=== PATIENT | female | born 1930 | race Caucasian/White ===

== ENCOUNTER 2017-07-27 08:35 | Emergency (ER) | payer MEDICARE, BC ==
[2017-07-27 09:00] VITALS: BP 180/100
--- NOTE | 2017-07-27 09:08 | EDM.PDOC ---
ED HPI GENERAL MEDICAL PROBLEM - General Chief Complaint: Gastrointestinal Problem Stated Complaint: NAUSEA Time Seen by Provider: 07/27/17 08:55 Source of Information: Reports: Patient History Limitations: Reports: No Limitations - History of Present Illness INITIAL COMMENTS - FREE TEXT/NARRATIVE: Connie is an 86 year old female who presents to the ED with c/o low-mid back pain and nausea. She reports she has not felt well for about 4 days now. She reports she does have chronic back pain. She reports the pain has worsened the last 4 days after she was attempting to move some heavy flower pots. She reports she did not lift them, but rather was trying to pull them to a different location. She reports she normally sees the chiropractor, but this has not been helping. She also reports she has felt nauseated the past 4 days as well. She reports she has not had a bowel movement the last 3 days and has been belching more as well. She reports her appetite has been decreased. She has been trying tums for the nausea, but this has not been helping. She has not been able to eat much. She reports her back pain is worse when initially getting up to ambulate. She reports the pain improves once she is up for a little while. She denies any pain while she is sitting. Denies any radiation of the pain down her legs. Denies any loss of bowel or bladder control. Onset Date: 07/25/17 Duration: Getting Worse Location: Reports: Abdomen, Back Worsens with: Reports: Movement Associated Symptoms: Reports: Fever/Chills (chills, no fever), Loss of Appetite , Nausea/Vomiting (nausea, no vomiting), Shortness of Breath, Weakness. Denies : Confusion, Chest Pain, Cough, cough w sputum, Diaphoresis, Headaches, Malaise , Rash, Seizure, Syncope - Related Data Allergies Allergy/AdvReac Type Severity Reaction Status Date / Time levofloxacin [From Levaquin] Allergy Shaking Verified 07/27/17 08:44 Penicillins Allergy Rash Verified 07/27/17 08:44 sulfamethoxazole Allergy Shaking Verified 07/27/17 08:44 [From Bactrim] trimethoprim [From Bactrim] Allergy Shaking Verified 07/27/17 08:44 Home Meds: Home Meds Omeprazole 20 mg PO DAILY 09/28/13 [History] Simvastatin 10 mg PO BEDTIME 09/28/13 [History] Atenolol [Tenormin] 25 mg PO BEDTIME 02/23/14 [History] Lisinopril/Hydrochlorothiazide [Lisinopril-Hctz 20-25 mg Tab] 1 each PO BID 10/30 [History] Aspirin [Halfprin] 81 mg PO BEDTIME 11/21/14 [History] Cyanocobalamin (Vitamin B-12) [Vitamin B-12] 1,000 mcg PO Q7D 11/21/14 [History] Doxylamine Succinate [Unisom Sleep Aid] 25 mg PO BEDTIME PRN 11/21/14 [History] Magnesium [Mag-Tab SR] 1 tab PO DAILY 11/21/14 [History] Cholecalciferol (Vitamin D3) [Vitamin D3] 1,000 unit PO DAILY 10/08/15 [History] Cranberry 400 mg PO DAILY 10/08/15 [History] Pregabalin [Lyrica] 50 mg PO DAILY 10/08/15 [History] Cyclobenzaprine [Flexeril] 5 mg PO Q8H PRN #15 tab 07/27/17 [Rx] Potassium Chloride [Klor-Con M20] 20 meq PO DAILY 07/27/17 [History] Past Medical History - Past Health History Medical/Surgical History: Denies Medical/Surgical History HEENT History: Reports: Hard of Hearing, Sinusitis Cardiovascular History: Reports: High Cholesterol, Hypertension, SOB on Exertion Respiratory History: Reports: None Gastrointestinal History: Reports: GERD Genitourinary History: Reports: UTI, Recurrent, Other (See Below) Other Genitourinary History: dysuria, nocturia, urticaria Musculoskeletal History: Reports: Arthritis, Osteoarthritis, Other (See Below) Other Musculoskeletal History: arthralgia, bilateral leg paresthesias Psychiatric History: Reports: None Endocrine/Metabolic History: Reports: Vitamin D Deficiency Hematologic History: Reports: B12 Deficiency, Other (See Below) Other Hematologic History: hypokalemia Immunologic History: Reports: None Oncologic (Cancer) History: Reports: None Dermatologic History: Reports: None - Past Surgical History HEENT Surgical History: Reports: Tonsillectomy Cardiovascular Surgical History: Reports: None Respiratory Surgical History: Reports: None GI Surgical History: Reports: Appendectomy, Cholecystectomy Female Surgical History: Reports: Hysterectomy, Oophorectomy, Other (See Below) Musculoskeletal Surgical History: Reports: Arthroscopic Knee, Knee Replacement Oncologic Surgical History: Reports: None Social & Family History - Living Situation & Occupation Living situation: Reports: , with Spouse Occupation: Retired ED ROS GENERAL - Review of Systems Review Of Systems: See Below Constitutional: Reports: Weakness, Fatigue, Decreased Appetite. Denies: Fever, Chills HEENT: Reports: No Symptoms Respiratory: Reports: Shortness of Breath. Denies: Wheezing, Pleuritic Chest Pain, Cough, Sputum, Hemoptysis Cardiovascular: Reports: Dyspnea on Exertion. Denies: Chest Pain, Claudication , Edema, Lightheadedness, Orthopnea, Palpitations, Syncope Endocrine: Reports: Fatigue GI/Abdominal: Reports: Abdominal Pain, Constipation, Decreased Appetite, Distension, Nausea, Other (belching). Denies: Diarrhea, Flatus, Vomiting : Reports: Frequency, Urgency. Denies: Dysuria, Flank Pain, Hematuria Musculoskeletal: Reports: Back Pain. Denies: Leg Pain Skin: Reports: No Symptoms Neurological: Reports: Headache, Weakness. Denies: Confusion, Dizziness, Numbness, Pre-Existing Deficit, Tingling, Difficulty Walking, Gait Disturbance Psychiatric: Reports: No Symptoms Hematologic/Lymphatic: Reports: No Symptoms Immunologic: Reports: No Symptoms ED EXAM, GI/ABD - Physical Exam Exam: See Below Exam Limited By: No Limitations General Appearance: Alert, WD/WN, No Apparent Distress Head: Atraumatic, Normocephalic Neck: Normal Inspection, Supple, Non-Tender, Full Range of Motion Respiratory/Chest: No Respiratory Distress, Lungs Clear, Normal Breath Sounds, No Accessory Muscle Use, Chest Non-Tender Cardiovascular: Normal Peripheral Pulses, Regular Rate, Rhythm, No Edema, No Gallop, No JVD, No Murmur, No Rub GI/Abdominal Exam: Normal Bowel Sounds, Soft, No Organomegaly, No Distention, No Abnormal Bruit, No Mass, Pelvis Stable, Tender (diffuse). No: Guarding, Rigid, Rebound Back Exam: Normal Inspection, Decreased Range of Motion, Muscle Spasm, Vertebral Tenderness (L1-L3). No: CVA Tenderness (L), CVA Tenderness (R) Extremities: Normal Inspection, Normal Range of Motion, Non-Tender, Normal Capillary Refill, No Pedal Edema Neurological: Alert, Oriented, CN II-XII Intact, Normal Cognition, Normal Gait, Normal Reflexes, No Motor/Sensory Deficits Psychiatric: Normal Affect, Normal Mood Skin Exam: Warm, Dry, Intact, Normal Color, No Rash Lymphatic: No Adenopathy Course - Vital Signs Last Recorded V/S: Last Vital Signs Temp 96.9 F 07/27/17 08:51 Pulse 51 L 07/27/17 08:51 Resp 18 07/27/17 08:51 BP 180/100 H 07/27/17 08:51 Pulse Ox 96 07/27/17 08:51 - Orders/Labs/Meds Orders: Active Orders 24 hr Category Date Time Status Abdomen Pelvis w Cont [CT] Stat Exams 07/27/17 09:54 Taken UA W/MICROSCOPIC [URIN] Stat Lab 07/27/17 09:00 Ordered Labs: Laboratory Tests 07/27/17 07/27/17 07/27/17 Range/Units 09:00 09:09 09:09 WBC 5.9 (5.0-10.0) 10^3/uL RBC 4.69 (4.00-5.50) 10^6/uL Hgb 14.0 (12.0-16.0) g/dL Hct 41.5 (37.0-47.0) % MCV 88.5 (82.0-94.0) fL MCH 29.9 (27.0-32.0) pg MCHC 33.7 (33.0-38.0) g/dL RDW Coeff of Ruby 12.8 (11.0-15.0) % Plt Count 244 (150-400) 10^3/uL Neut % (Auto) 68.7 (35-85) % Lymph % (Auto) 22.4 (10-55) % Cedar % (Auto) 7.7 (0-16) % Eos % (Auto) 0.9 (0-5) % Baso % (Auto) 0.3 (0-3) % Neut # (Auto) 4.03 (1.80-7.00) 10^3/uL Lymph # (Auto) 1.31 (1.00-4.80) 10^3/uL Cedar # (Auto) 0.45 (0.00-0.80) 10^3/uL Eos # (Auto) 0.05 (0.00-0.45) 10^3/uL Baso # (Auto) 0.02 10^3/uL D-Dimer, Quantitative 1.67 H (0.00-0.50) Sodium (136-145) mEq/L Potassium (3.5-5.0) mEq/L Chloride (98-106) mEq/L Carbon Dioxide (21-32) mmol/L BUN (7-18) mg/dL Creatinine (0.6-1.0) mg/dL Est Cr Clr Drug Dosing mL/min Estimated GFR (MDRD) (>=60) mL/min Glucose (75-99) mg/dL Calcium (8.4-10.1) mg/dL Total Bilirubin (0.0-1.0) mg/dL AST (15-37) U/L ALT (12-78) U/L Alkaline Phosphatase (46-116) U/L Troponin I (0.00-0.06) ng/mL C-Reactive Protein (0.2-0.8) mg/dL Total Protein (6.4-8.2) g/dL Albumin (3.4-5.0) g/dL Amylase (25-115) U/L Urine Color Yellow (YELLOW) Urine Appearance Clear (CLEAR) Urine pH 7.0 (4.5-8.0) Ur Specific [place] 1.015 (1.003-1.020) Urine Protein Negative (NEGATIVE) mg/dL Urine Glucose (UA) Negative (NEGATIVE) mg/dL Urine Ketones Negative (NEGATIVE) mg/dL Urine Occult Blood Trace-intact H (NEGATIVE) Urine Nitrite Negative (NEGATIVE) Urine Bilirubin Negative (NEGATIVE) Urine Urobilinogen 0.2 (0.2-1.0) EU/dL Ur Leukocyte Esterase Moderate H (NEGATIVE) Urine RBC Not seen (0-5) /HPF Urine WBC 0-5 (0-5) /HPF Ur Squamous Epith Cells Occasional H (NOT SEEN) /HPF Ur Renal Epithelial Cell Few H (NOT SEEN) /HPF 07/27/17 Range/Units 09:09 WBC (5.0-10.0) 10^3/uL RBC (4.00-5.50) 10^6/uL Hgb (12.0-16.0) g/dL Hct (37.0-47.0) % MCV (82.0-94.0) fL MCH (27.0-32.0) pg MCHC (33.0-38.0) g/dL RDW Coeff of Ruby (11.0-15.0) % Plt Count (150-400) 10^3/uL Neut % (Auto) (35-85) % Lymph % (Auto) (10-55) % Cedar % (Auto) (0-16) % Eos % (Auto) (0-5) % Baso % (Auto) (0-3) % Neut # (Auto) (1.80-7.00) 10^3/uL Lymph # (Auto) (1.00-4.80) 10^3/uL Cedar # (Auto) (0.00-0.80) 10^3/uL Eos # (Auto) (0.00-0.45) 10^3/uL Baso # (Auto) 10^3/uL D-Dimer, Quantitative (0.00-0.50) Sodium 132 L (136-145) mEq/L Potassium 3.7 (3.5-5.0) mEq/L Chloride 97 L (98-106) mEq/L Carbon Dioxide 22 (21-32) mmol/L BUN 14 (7-18) mg/dL Creatinine 1.2 H (0.6-1.0) mg/dL Est Cr Clr Drug Dosing 32.09 mL/min Estimated GFR (MDRD) 43 L (>=60) mL/min Glucose 121 H (75-99) mg/dL Calcium 9.0 (8.4-10.1) mg/dL Total Bilirubin 1.2 H (0.0-1.0) mg/dL AST 24 (15-37) U/L ALT 26 (12-78) U/L Alkaline Phosphatase 110 (46-116) U/L Troponin I < 0.017 (0.00-0.06) ng/mL C-Reactive Protein 0.2 (0.2-0.8) mg/dL Total Protein 7.1 (6.4-8.2) g/dL Albumin 3.6 (3.4-5.0) g/dL Amylase 241 H (25-115) U/L Urine Color (YELLOW) Urine Appearance (CLEAR) Urine pH (4.5-8.0) Ur Specific [place] (1.003-1.020) Urine Protein (NEGATIVE) mg/dL Urine Glucose (UA) (NEGATIVE) mg/dL Urine Ketones (NEGATIVE) mg/dL Urine Occult Blood (NEGATIVE) Urine Nitrite (NEGATIVE) Urine Bilirubin (NEGATIVE) Urine Urobilinogen (0.2-1.0) EU/dL Ur Leukocyte Esterase (NEGATIVE) Urine RBC (0-5) /HPF Urine WBC (0-5) /HPF Ur Squamous Epith Cells (NOT SEEN) /HPF Ur Renal Epithelial Cell (NOT SEEN) /HPF Meds: Medications Discontinued Medications Generic Name Dose Route Start Last Admin Trade Name Freq PRN Reason Stop Dose Admin Sodium Chloride 1,000 mls @ 999 mls/hr 07/27/17 09:09 07/27/17 09:22 Normal Saline IV 07/27/17 10:09 999 mls/hr .BOLUS ONE Administration Iopamidol 100 ml 07/27/17 10:18 07/27/17 10:45 Isovue-300 (61%) IVPUSH 07/27/17 10:19 100 ml ONETIME ONE Administration - Re-Assessments/Exams Free Text/Narrative Re-Assessment/Exam: Discussed labs with patient and daughter. Will proceed with CT abd/pelvis to further assess given elevated amylase and back pain. Discussed mildly elevated D -dimer with Dr. Samano, who feels we can suspect this is in relation to compression fracture. Discussed CT results with patient and daughter. Ct reveals inferior L1 compression fracture. Reviewed images with radiology who reports everything in abdomen appears normal. = Departure - Departure Time of Disposition: 11:18 Disposition: Home, Self-Care 01 Condition: Good Clinical Impression: Compression fracture of first lumbar vertebra Qualifiers: Encounter type: initial encounter Fracture type: closed Qualified Code(s): S32.010A - Wedge compression fracture of first lumbar vertebra, initial encounter for closed fracture - Discharge Information Prescriptions: Cyclobenzaprine [Flexeril] 5 mg PO Q8H PRN #15 tab PRN Reason: Muscle Spasm Instructions: Spinal Compression Fracture Forms: ED Department Discharge Additional Instructions: Activity as tolerated Referral to physical therapy [place] as needed for severe pain. Tylenol or ibuprofen for less severe pain. Flexeril as needed for muscle spasm Miralax daily until stools are regular No pediatric care coordinator for 6 weeks given fracture of vertebrae Follow up in clinic if symptoms worsen or do not improve - My Orders Last 24 Hours: My Active Orders 07/27/17 09:00 UA W/MICROSCOPIC [URIN] Stat 06/12/18 09:54 Abdomen Pelvis w Cont [CT] Stat - Assessment/Plan Last 24 Hours: My Active Orders 07/27/17 09:00 UA W/MICROSCOPIC [URIN] Stat 07/27/17 09:54 Abdomen Pelvis w Cont [CT] Stat
[2017-07-27] MEDS ORDERED: Sodium Chloride 0.9% 1,000 ML IV ONE (09:09)
[2017-07-27 09:29] LABS: CHLORIDE,CL 97 mEq/L (98-106); SODIUM,NA 132 mEq/L (136-145)
[2017-07-27] MEDS ORDERED: Iopamidol 612 MG/ML 100 ML Bottle IVPUSH ONE (10:18)
== END 2017-07-27 11:28 | disposition home or self-care (01) ==
LOC: CC.ED 08:35
DX: S32.010A Wedge compression fracture of first lumbar vertebra, initial encounter for closed fracture (principal); E78.00 Pure hypercholesterolemia, unspecified; I10 Essential (primary) hypertension; Z88.1 Allergy status to other antibiotic agents; Z88.0 Allergy status to penicillin; Z88.2 Allergy status to sulfonamides; Z79.899 Other long term (current) drug therapy; Z79.82 Long term (current) use of aspirin; X50.9XXA Other and unspecified overexertion or strenuous movements or postures, initial encounter
CPT/HCPCS: 36415; 74177; 80053; 81001; 82150; 84484; 85025; 85379; 86140; 96360; 99283; J7030; Q9967

== ENCOUNTER 2017-08-01 09:05 | Emergency (ER) | payer MEDICARE, BC ==
[2017-08-01] MEDS ORDERED: Acetaminophen/HYDROcodone 325-5 MG Tab PO ONE (09:06)
[2017-08-01 09:12] VITALS: BP 154/72
[2017-08-01] MEDS ORDERED: Take Home: Acetaminophen/HYDROcodone 325-5 MG, 2 Tab Pack PO ONE (09:55)
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
== END 2017-08-01 10:08 | disposition home or self-care (01) ==
LOC: CC.ED 09:05
DX: S32.019A Unspecified fracture of first lumbar vertebra, initial encounter for closed fracture (principal); I10 Essential (primary) hypertension; Z88.0 Allergy status to penicillin; Z88.8 Allergy status to other drugs, medicaments and biological substances; Z88.2 Allergy status to sulfonamides; Z79.899 Other long term (current) drug therapy; X58.XXXA Exposure to other specified factors, initial encounter
CPT/HCPCS: 99282; A9270; 99284

== ENCOUNTER 2017-08-02 14:44 | Inpatient (IN) | payer MEDICARE, BC ==
[2017-08-02] MEDS ORDERED: Sodium Chloride 0.9% 10 ML Syringe FLUSH PRN (15:31)
[2017-08-02] MEDS ORDERED: Ondansetron 4 MG Tab.DIS PO PRN (15:31)
[2017-08-02] MEDS ORDERED: Ondansetron 4 MG/2 ML SDV IV PRN (15:31)
[2017-08-02] MEDS: fentaNYL 100 MCG/2 ML SDV IVPUSH SCH (15:47)
[2017-08-02] MEDS: Enoxaparin 30 MG/0.3 ML Syringe SUBCUT SCH ×2 (16:14→16:48)
[2017-08-02] MEDS ORDERED: Bisacodyl 10 MG Supp RECTAL ONE (16:28)
[2017-08-02] MEDS: Polyethylene Glycol 3350 Powder 17 GM Packet PO SCH (17:34)
[2017-08-02] MEDS: Acetaminophen/HYDROcodone 325-5 MG Tab PO PRN (20:04)
[2017-08-02] MEDS: Simvastatin 10 MG Tab PO SCH (20:04)
[2017-08-02] MEDS: Hydrochlorothiazide 25 MG Tab PO SCH (20:04)
[2017-08-02] MEDS: Cyclobenzaprine 10 MG Tab PO PRN (20:05)
[2017-08-02] MEDS: Lisinopril 20 MG Tab PO SCH (20:05)
[2017-08-02] MEDS: Aspirin 81 MG Tab.EC PO SCH (20:05)
[2017-08-02] MEDS: Atenolol 25 MG Tab PO SCH (20:05)
[2017-08-03] MEDS: fentaNYL 100 MCG/2 ML SDV IVPUSH SCH ×2 (04:32→20:49)
[2017-08-03] MEDS: Polyethylene Glycol 3350 Powder 17 GM Packet PO SCH (07:44)
[2017-08-03] MEDS: Cholecalciferol (Vitamin D3) 1,000 Unit Tab PO SCH (07:44)
[2017-08-03] MEDS: Pantoprazole 40 MG Tab.CR PO SCH (07:44)
[2017-08-03] MEDS: Hydrochlorothiazide 25 MG Tab PO SCH ×2 (07:44→20:48)
[2017-08-03] MEDS: Pregabalin 50 MG Cap PO SCH (07:45)
[2017-08-03] MEDS: Potassium Chloride 10 MEQ Tab.ER PO SCH (07:45)
[2017-08-03] MEDS: Celecoxib 100 MG Cap PO SCH (07:45)
[2017-08-03] MEDS: Lisinopril 20 MG Tab PO SCH ×2 (07:45→20:48)
--- NOTE | 2017-08-03 08:44 | PCM.HP ---
H&P History of Present Illness - General Date of Service: 08/02/17 Admit Problem/Dx: Admission Diagnosis/Problem Admission Diagnosis/Problem Compression fracture of L1 lumbar vertebra Source of Information: Patient History Limitations: Reports: No Limitations - History of Present Illness Initial Comments - Free Text/Narative: Patient presents back today for direct admit. She was initially seen on Wednesday by Sandra and found to have a L1 compression fracture. Was treated with hydrocodone and flexeril and not tolerating well. She presented back to ER on Wednesday as the pain meds were not working and she was out. Daughter had been staying with her and noted that she has difficulty with raising from chair , getting in and out of bed, etc. Her is also frail and unable to provide her assistance. Daughter is leaving to go back to [place] and worries about her pain control and lack of available assistance. She was offered admission to the hospital but declined as she wanted to try it at home with increased pain meds. Was sent home with hydrocodone 2 tabs every 6 hours and Celebrex. Brought back today as was not tolerating the pain. She has not fallen as of late. She was moving pots of galindo to the garage and possibly strained her back a few days prior to seeing Sandra. Onset of Symptoms: Reports: Gradual Duration of Symptoms: Reports: Day(s): Location: Reports: Back Quality: Reports: Throbbing Severity: Severe Improves with: Reports: Rest Worsens with: Reports: Movement Associated Symptoms: Reports: No Other Symptoms Back Pain Score (Numeric/FACES): 8 - Related Data Allergies/Adverse Reactions: Allergies Allergy/AdvReac Type Severity Reaction Status Date / Time levofloxacin [From Levaquin] Allergy Shaking Verified 08/02/17 15:19 Penicillins Allergy Rash Verified 08/02/17 15:19 sulfamethoxazole Allergy Shaking Verified 08/02/17 15:19 [From Bactrim] trimethoprim [From Bactrim] Allergy Shaking Verified 08/02/17 15:19 Home Medications: Home Meds Omeprazole 20 mg PO DAILY 09/28/13 [History] Simvastatin 10 mg PO BEDTIME 09/28/13 [History] Atenolol [Tenormin] 25 mg PO BEDTIME 02/23/14 [History] Lisinopril/Hydrochlorothiazide [Lisinopril-Hctz 20-25 mg Tab] 1 each PO BID 10/30 [History] Aspirin [Halfprin] 81 mg PO BEDTIME 11/21/14 [History] Cyanocobalamin (Vitamin B-12) [Vitamin B-12] 1,000 mcg PO SA 11/21/14 [History] Doxylamine Succinate [Unisom Sleep Aid] 25 mg PO BEDTIME PRN 11/21/14 [History] Magnesium [Mag-Tab SR] 1 tab PO DAILY 11/21/14 [History] Cholecalciferol (Vitamin D3) [Vitamin D3] 1,000 unit PO DAILY 10/08/15 [History] Cranberry 400 mg PO DAILY 10/08/15 [History] Pregabalin [Lyrica] 50 mg PO DAILY 10/08/15 [History] Potassium Chloride [Klor-Con M20] 20 meq PO DAILY 07/27/17 [History] Hydrocodone/Acetaminophen [Hydrocodon-Acetaminophen 5-325] 1 tab PO Q6H PRN [History] Celecoxib 200 mg PO DAILY 08/02/17 [History] Cyclobenzaprine [Flexeril] 10 mg PO Q8H PRN 08/02/17 [History] Past Medical History - Past Health History Medical/Surgical History: Denies Medical/Surgical History HEENT History: Reports: Hard of Hearing, Sinusitis Cardiovascular History: Reports: High Cholesterol, Hypertension, SOB on Exertion Respiratory History: Reports: None Gastrointestinal History: Reports: GERD Genitourinary History: Reports: UTI, Recurrent, Other (See Below) Other Genitourinary History: dysuria, nocturia, urticaria Musculoskeletal History: Reports: Arthritis, Osteoarthritis, Other (See Below) Other Musculoskeletal History: arthralgia, bilateral leg paresthesias Psychiatric History: Reports: None Endocrine/Metabolic History: Reports: Vitamin D Deficiency Hematologic History: Reports: B12 Deficiency, Other (See Below) Other Hematologic History: hypokalemia Immunologic History: Reports: None Oncologic (Cancer) History: Reports: None Dermatologic History: Reports: None - Past Surgical History HEENT Surgical History: Reports: Tonsillectomy Cardiovascular Surgical History: Reports: None Respiratory Surgical History: Reports: None GI Surgical History: Reports: Appendectomy, Cholecystectomy Female Surgical History: Reports: Hysterectomy, Oophorectomy, Other (See Below) Musculoskeletal Surgical History: Reports: Arthroscopic Knee, Knee Replacement Oncologic Surgical History: Reports: None Social & Family History - Tobacco Use Smoking Status *Q: Never Smoker - Living Situation & Occupation Living situation: Reports: , with Spouse Occupation: Retired H&P Review of Systems - Review of Systems: Review Of Systems: See Below General: Reports: Weakness. Denies: Fever, Chills, Malaise, Decreased Appetite HEENT: Reports: No Symptoms Pulmonary: Denies: Shortness of Breath, Cough Cardiovascular: Denies: Chest Pain, Edema, Lightheadedness Gastrointestinal: Denies: Abdominal Pain, Nausea, Vomiting Genitourinary: Reports: No Symptoms Musculoskeletal: Reports: Back Pain Skin: Reports: No Symptoms Psychiatric: Reports: No Symptoms Neurological: Reports: Weakness Exam - Exam Exam: See Below - Vital Signs Vital Signs: Last Vital Signs Temp 96.6 F 08/03/17 07:12 Pulse 48 L 08/03/17 07:12 Resp 19 08/03/17 07:12 BP 136/61 08/03/17 07:45 Pulse Ox 98 08/03/17 07:12 Weight: 200 lb - Exam General: Alert, Oriented HEENT: Mucosa Moist & [place] Neck: Supple Lungs: Clear to Auscultation, Normal Respiratory Effort Cardiovascular: Regular Rate, Regular Rhythm GI/Abdominal Exam: Normal Bowel Sounds, Soft, Non-Tender Back Exam: Decreased Range of Motion, Vertebral Tenderness Extremities: Normal Inspection, No Pedal Edema Skin: Warm, Dry Neuro Extensive - Mental Status: Alert, Oriented x3 - Problem List (1) Compression fracture of first lumbar vertebra SNOMED Code(s): 569664198 ICD Code: S32.010A - WEDGE COMPRESSION FRACTURE OF FIRST LUMBAR VERTEBRA, INIT Status: Acute Priority: High Current Visit: Yes Qualifiers: Encounter type: initial encounter Fracture type: closed Qualified Code(s) : S32.010A - Wedge compression fracture of first lumbar vertebra, initial encounter for closed fracture Problem List Initiated/Reviewed/Updated: Yes Orders Last 24hrs: Active Orders 24 hr Category Date Time Status Patient Status [ADT] Routine ADT 08/02/17 15:31 Active Oxygen Therapy [RC] .PRN Care 08/02/17 15:31 Active Up With Assistance [RC] .PRN Care 08/02/17 15:31 Active Vital Signs [RC] 0000,0400,0800,1200,1600,2000 Care 08/02/17 15:31 Active PT Evaluation and Treatment [CONS] Routine Cons 08/02/17 15:31 Active Regular Diet [DIET] Diet 08/02/17 Dinner Active Lumbar Spine Comp wo Cont [MR] Routine Exams 08/03/17 17:02 Ordered Acetaminophen/HYDROcodone [[place] 325-5 MG] Med 08/02/17 15:31 Active 2 tab PO Q6H PRN Aspirin [Halfprin] Med 08/02/17 20:00 Active 81 mg PO BEDTIME Atenolol [Tenormin] Med 08/02/17 20:00 Active 25 mg PO BEDTIME Celecoxib [CeleBREX] Med 08/03/17 08:00 Active 200 mg PO DAILY Cholecalciferol (Vitamin D3) [Vitamin D3] Med 08/03/17 08:00 Active 1,000 units PO DAILY Cyanocobalamin (Vitamin B12) [Vitamin B12] Med 08/07/17 08:00 Active 1,000 mcg PO Sa@0800 Cyclobenzaprine [Flexeril] Med 08/02/17 17:03 Active 10 mg PO Q8H PRN Enoxaparin [Lovenox] Med 08/02/17 15:45 Active 30 mg SUBCUT DAILY@1600 Hydrochlorothiazide Med 08/02/17 20:00 Active 25 mg PO BID Lisinopril [Prinivil] Med 08/02/17 20:00 Active 20 mg PO BID Magnesium [Mag-Tab SR] Med 08/03/17 08:00 Pending 1 tab PO DAILY Ondansetron [Zofran ODT] Med 08/02/17 15:31 Active 4 mg PO Q4H PRN Ondansetron [Zofran] Med 08/02/17 15:31 Active 4 mg IV Q4H PRN Pantoprazole [ProTONIX] Med 08/03/17 08:00 Active 40 mg PO DAILY Polyethylene Glycol 3350 [MiraLAX] Med 08/02/17 16:30 Active 17 gm PO DAILY Potassium Chloride [Klor-Con 10] Med 08/03/17 08:00 Active 20 meq PO DAILY Pregabalin [Lyrica] Med 08/03/17 08:00 Active 50 mg PO DAILY Simvastatin [Zocor] Med 08/02/17 20:00 Active 10 mg PO BEDTIME Sodium Chloride 0.9% [Saline Flush] Med 08/02/17 15:31 Active 10 ml FLUSH ASDIRECTED PRN fentaNYL [Sublimaze] Med 08/02/17 15:45 Active 25 mcg IVPUSH Q12H Saline Lock Insert [OM.PC] Routine Oth 08/02/17 15:31 Ordered EM Hose [Antiembolic Hose] [OM.PC] Routine Oth 08/02/17 18:12 Ordered Resuscitation Status Routine Resus Stat 08/02/17 15:31 Ordered Medication Orders Hydrocodone Bitart/Acetaminophen ([place] 325-5 Mg) 2 tab PO Q6H PRN PRN Reason: Pain (moderate 4-6) Last Admin: 08/02/17 20:04 Dose: 2 tab Aspirin (Halfprin) 81 mg PO BEDTIME [facility] Last Admin: 08/02/17 20:05 Dose: 81 mg Atenolol (Tenormin) 25 mg PO BEDTIME [facility] Last Admin: 08/02/17 20:05 Dose: 25 mg Celecoxib (Celebrex) 200 mg PO DAILY [facility] Last Admin: 08/03/17 07:45 Dose: 200 mg Cholecalciferol (Vitamin D3) 1,000 units PO DAILY [facility] Last Admin: 08/03/17 07:44 Dose: 1,000 units Cyanocobalamin (Vitamin B12) 1,000 mcg PO Sa@0800 [facility] Cyclobenzaprine HCl (Flexeril) 10 mg PO Q8H PRN PRN Reason: Muscle Spasm Last Admin: 08/02/17 20:05 Dose: 10 mg Enoxaparin Sodium (Lovenox) 30 mg SUBCUT DAILY@1600 [facility] Last Admin: 08/02/17 16:48 Dose: 30 mg Admin: 08/02/17 16:14 Dose: Not Given Fentanyl (Sublimaze) 25 mcg IVPUSH Q12H [facility] Last Admin: 08/03/17 04:32 Dose: 25 mcg Admin: 08/02/17 15:47 Dose: 25 mcg Hydrochlorothiazide (Hydrochlorothiazide) 25 mg PO BID [facility] Last Admin: 08/03/17 07:44 Dose: 25 mg Admin: 08/02/17 20:04 Dose: 25 mg Lisinopril (Prinivil) 20 mg PO BID [facility] Last Admin: 08/03/17 07:45 Dose: 20 mg Admin: 08/02/17 20:05 Dose: 20 mg Non-Formulary Medication (Magnesium [Mag-Tab Sr]) 1 tab PO DAILY [facility] Ondansetron HCl (Zofran Odt) 4 mg PO Q4H PRN PRN Reason: nausea, able to take PO Ondansetron HCl (Zofran) 4 mg IV Q4H PRN PRN Reason: Nausea/Vomiting Pantoprazole Sodium (Protonix) 40 mg PO DAILY [facility] Last Admin: 08/03/17 07:44 Dose: 40 mg Polyethylene Glycol (Miralax) 17 gm PO DAILY [facility] Last Admin: 08/03/17 07:44 Dose: 17 gm Admin: 08/02/17 17:34 Dose: 17 gm Potassium Chloride (Klor-Con 10) 20 meq PO DAILY [facility] Last Admin: 08/03/17 07:45 Dose: 20 meq Pregabalin (Lyrica) 50 mg PO DAILY [facility] Last Admin: 08/03/17 07:45 Dose: 50 mg Simvastatin (Zocor) 10 mg PO BEDTIME [facility] Last Admin: 08/02/17 20:04 Dose: 10 mg Sodium Chloride (Saline Flush) 10 ml FLUSH ASDIRECTED PRN PRN Reason: Keep Vein Open Assessment/Plan Comment:: Patient not doing well at home managing her pain and has inability to care for self. Admitted for pain control, obtain MRI, Physical therapy. Dr. Long aware of admission and agrees with plan.
[2017-08-03] MEDS ORDERED: Magnesium Chloride 64 MG Tab.ER PO SCH (09:00)
--- NOTE | 2017-08-03 09:01 | PCM.PN ---
- General Info Date of Service: 08/03/17 Admission Dx/Problem (Free Text): Admission Diagnosis/Problem Admission Diagnosis/Problem Compression fracture of L1 lumbar vertebra Functional Status: Reports: Tolerating Diet. Denies: Pain Controlled, Ambulating - Review of Systems General: Reports: Weakness, Malaise. Denies: Fever, Fatigue HEENT: Reports: No Symptoms Pulmonary: Denies: Shortness of Breath, Cough Cardiovascular: Denies: Chest Pain, Edema, Lightheadedness Gastrointestinal: Reports: Constipation (resolved yesterday after dulcolax suppository). Denies: Abdominal Pain, Nausea, Vomiting Genitourinary: Denies: No Symptoms Musculoskeletal: Reports: Back Pain Skin: Reports: No Symptoms Neurological: Reports: Weakness - Patient Data Vitals - Most Recent: Last Vital Signs Temp 96.6 F 08/03/17 07:12 Pulse 48 L 08/03/17 07:12 Resp 19 08/03/17 07:12 BP 136/61 08/03/17 07:45 Pulse Ox 98 08/03/17 07:12 Weight - Most Recent: 200 lb Med Orders - Current: Current Medications Hydrocodone Bitart/Acetaminophen ([place] 325-5 Mg) 2 tab PO Q6H PRN PRN Reason: Pain (moderate 4-6) Last Admin: 08/02/17 20:04 Dose: 2 tab Aspirin (Halfprin) 81 mg PO BEDTIME [facility] Last Admin: 08/02/17 20:05 Dose: 81 mg Atenolol (Tenormin) 25 mg PO BEDTIME [facility] Last Admin: 08/02/17 20:05 Dose: 25 mg Celecoxib (Celebrex) 200 mg PO DAILY [facility] Last Admin: 08/03/17 07:45 Dose: 200 mg Cholecalciferol (Vitamin D3) 1,000 units PO DAILY [facility] Last Admin: 08/03/17 07:44 Dose: 1,000 units Cyanocobalamin (Vitamin B12) 1,000 mcg PO Sa@0800 [facility] Cyclobenzaprine HCl (Flexeril) 10 mg PO Q8H PRN PRN Reason: Muscle Spasm Last Admin: 08/02/17 20:05 Dose: 10 mg Enoxaparin Sodium (Lovenox) 30 mg SUBCUT DAILY@1600 [facility] Last Admin: 08/02/17 16:48 Dose: 30 mg Fentanyl (Sublimaze) 25 mcg IVPUSH BID [facility] Hydrochlorothiazide (Hydrochlorothiazide) 25 mg PO BID [facility] Last Admin: 08/03/17 07:44 Dose: 25 mg Lisinopril (Prinivil) 20 mg PO BID [facility] Last Admin: 08/03/17 07:45 Dose: 20 mg Magnesium Chloride (Mag-64) 1 mg PO DAILY [facility] Ondansetron HCl (Zofran Odt) 4 mg PO Q4H PRN PRN Reason: nausea, able to take PO Ondansetron HCl (Zofran) 4 mg IV Q4H PRN PRN Reason: Nausea/Vomiting Pantoprazole Sodium (Protonix) 40 mg PO DAILY [facility] Last Admin: 08/03/17 07:44 Dose: 40 mg Polyethylene Glycol (Miralax) 17 gm PO DAILY [facility] Last Admin: 08/03/17 07:44 Dose: 17 gm Potassium Chloride (Klor-Con 10) 20 meq PO DAILY [facility] Last Admin: 08/03/17 07:45 Dose: 20 meq Pregabalin (Lyrica) 50 mg PO DAILY [facility] Last Admin: 08/03/17 07:45 Dose: 50 mg Simvastatin (Zocor) 10 mg PO BEDTIME [facility] Last Admin: 08/02/17 20:04 Dose: 10 mg Sodium Chloride (Saline Flush) 10 ml FLUSH ASDIRECTED PRN PRN Reason: Keep Vein Open Discontinued Medications Bisacodyl (Dulcolax) 10 mg RECTAL ONETIME ONE Stop: 08/02/17 16:29 Last Admin: 08/02/17 18:31 Dose: 10 mg Fentanyl (Sublimaze) 25 mcg IVPUSH Q12H [facility] Last Admin: 08/03/17 04:32 Dose: 25 mcg - Exam General: Alert, Oriented HEENT: Mucous Membr. Moist/[place] Neck: Supple Lungs: Clear to Auscultation, Normal Respiratory Effort Cardiovascular: Regular Rate, Regular Rhythm GI/Abdominal Exam: Normal Bowel Sounds, Soft, Non-Tender Back Exam: Decreased Range of Motion, Paraspinal Tenderness, Vertebral Tenderness Extremities: Normal Inspection, No Pedal Edema Skin: Warm, Dry Neurological: No New Focal Deficit - Problem List & Annotations (1) Compression fracture of first lumbar vertebra SNOMED Code(s): 967440996 Code(s): S32.010A - WEDGE COMPRESSION FRACTURE OF FIRST LUMBAR VERTEBRA, INIT Status: Acute Priority: High Current Visit: Yes Qualifiers: Encounter type: initial encounter Fracture type: closed Qualified Code(s) : S32.010A - Wedge compression fracture of first lumbar vertebra, initial encounter for closed fracture - Problem List Review Problem List Initiated/Reviewed/Updated: Yes - My Orders Last 24 Hours: My Active Orders 08/02/17 15:31 Patient Status [ADT] Routine Oxygen Therapy [RC] .PRN Up With Assistance [RC] .PRN Vital Signs [RC] 0000,0400,0800,1200,1600,2000 PT Evaluation and Treatment [CONS] Routine Acetaminophen/HYDROcodone [[place] 325-5 MG] 2 tab PO Q6H PRN Ondansetron [Zofran ODT] 4 mg PO Q4H PRN Ondansetron [Zofran] 4 mg IV Q4H PRN Sodium Chloride 0.9% [Saline Flush] 10 ml FLUSH ASDIRECTED PRN Saline Lock Insert [OM.PC] Routine Resuscitation Status Routine 08/02/17 15:45 Enoxaparin [Lovenox] 30 mg SUBCUT DAILY@1600 08/02/17 16:30 Polyethylene Glycol 3350 [MiraLAX] 17 gm PO DAILY 08/02/17 17:03 Cyclobenzaprine [Flexeril] 10 mg PO Q8H PRN 08/02/17 18:12 EM Hose [Antiembolic Hose] [OM.PC] Routine 08/02/17 20:00 Aspirin [Halfprin] 81 mg PO BEDTIME Atenolol [Tenormin] 25 mg PO BEDTIME Hydrochlorothiazide 25 mg PO BID Lisinopril [Prinivil] 20 mg PO BID Simvastatin [Zocor] 10 mg PO BEDTIME 08/02/17 Dinner Regular Diet [DIET] 08/03/17 08:00 Celecoxib [CeleBREX] 200 mg PO DAILY Cholecalciferol (Vitamin D3) [Vitamin D3] 1,000 units PO DAILY Magnesium [Mag-Tab SR] 1 tab PO DAILY Pantoprazole [ProTONIX] 40 mg PO DAILY Potassium Chloride [Klor-Con 10] 20 meq PO DAILY Pregabalin [Lyrica] 50 mg PO DAILY 08/03/17 17:02 Lumbar Spine Comp wo Cont [MR] Routine 08/03/17 20:00 fentaNYL [Sublimaze] 25 mcg IVPUSH BID 08/07/17 08:00 Cyanocobalamin (Vitamin B12) [Vitamin B12] 1,000 mcg PO Sa@0800 - Plan Plan:: Patient not doing well at home managing her pain and has inability to care for self. Admitted for pain control, obtain MRI, Physical therapy. Dr. Long aware of admission and agrees with plan. 08-03-2017 Patient continues to complain of pain. She is requiring assistance to get in and out of bed due to pain. Does feel that the pain meds are helping her. Have started her on Celebrex as well. Physical therapy for evaluation today. Will obtain a MRI of her lumbar spine today. Consider possible vertebroplasty. Continue pain medications and NSAIDs. PT. Inappropriate for discharge.
[2017-08-03] MEDS: Acetaminophen/HYDROcodone 325-5 MG Tab PO PRN (10:45)
[2017-08-03] MEDS: Magnesium Chloride 64 MG Tab.ER PO SCH (12:10)
[2017-08-03] MEDS: Enoxaparin 30 MG/0.3 ML Syringe SUBCUT SCH (16:20)
[2017-08-03] MEDS: Aspirin 81 MG Tab.EC PO SCH (20:48)
[2017-08-03] MEDS: Simvastatin 10 MG Tab PO SCH (20:48)
[2017-08-03] MEDS: Atenolol 25 MG Tab PO SCH (20:48)
[2017-08-04] MEDS: fentaNYL 100 MCG/2 ML SDV IVPUSH SCH ×2 (07:41→21:01)
[2017-08-04] MEDS: Celecoxib 100 MG Cap PO SCH (07:43)
[2017-08-04] MEDS: Hydrochlorothiazide 25 MG Tab PO SCH ×2 (07:43→21:24)
[2017-08-04] MEDS: Pregabalin 50 MG Cap PO SCH (07:43)
[2017-08-04] MEDS: Pantoprazole 40 MG Tab.CR PO SCH (07:44)
[2017-08-04] MEDS: Cholecalciferol (Vitamin D3) 1,000 Unit Tab PO SCH (07:44)
[2017-08-04] MEDS: Lisinopril 20 MG Tab PO SCH ×2 (07:44→21:24)
[2017-08-04] MEDS: Magnesium Chloride 64 MG Tab.ER PO SCH (07:44)
[2017-08-04] MEDS: Polyethylene Glycol 3350 Powder 17 GM Packet PO SCH (07:44)
[2017-08-04] MEDS: Potassium Chloride 10 MEQ Tab.ER PO SCH (07:44)
--- NOTE | 2017-08-04 20:36 | PCM.PN ---
- General Info Date of Service: 08/04/17 Admission Dx/Problem (Free Text): Admission Diagnosis/Problem Admission Diagnosis/Problem Compression fracture of L1 lumbar vertebra Functional Status: Reports: Tolerating Diet. Denies: Pain Controlled, Ambulating - Review of Systems General: Reports: Weakness, Fatigue, Malaise HEENT: Reports: No Symptoms Pulmonary: Denies: Shortness of Breath, Cough Cardiovascular: Denies: Chest Pain, Edema, Lightheadedness Gastrointestinal: Denies: Abdominal Pain, Nausea, Vomiting Genitourinary: Reports: No Symptoms Musculoskeletal: Reports: Back Pain Skin: Reports: No Symptoms Neurological: Reports: No Symptoms - Patient Data Vitals - Most Recent: Last Vital Signs Temp 96.6 F 08/04/17 19:59 Pulse 53 L 08/04/17 19:59 Resp 20 08/04/17 19:59 BP 103/42 L 08/04/17 19:59 Pulse Ox 95 08/04/17 19:59 Weight - Most Recent: 200 lb Lab Results Last 24 Hours: Laboratory Results - last 24 hr 08/04/17 08/04/17 Range/Units 08:39 08:39 WBC 5.3 (5.0-10.0) 10^3/uL RBC 4.71 (4.00-5.50) 10^6/uL Hgb 14.3 (12.0-16.0) g/dL Hct 42.0 (37.0-47.0) % MCV 89.2 (82.0-94.0) fL MCH 30.4 (27.0-32.0) pg MCHC 34.0 (33.0-38.0) g/dL RDW Coeff of [place] 13.2 (11.0-15.0) % Plt Count 284 (150-400) 10^3/uL Neut % (Auto) 61.8 (35-85) % Lymph % (Auto) 26.1 (10-55) % [place] % (Auto) 6.8 (0-16) % Eos % (Auto) 4.5 (0-5) % Baso % (Auto) 0.8 (0-3) % Neut # (Auto) 3.30 (1.80-7.00) 10^3/uL Lymph # (Auto) 1.39 (1.00-4.80) 10^3/uL [place] # (Auto) 0.36 (0.00-0.80) 10^3/uL Eos # (Auto) 0.24 (0.00-0.45) 10^3/uL Baso # (Auto) 0.04 10^3/uL Sodium 130 L (136-145) mEq/L Potassium 3.9 (3.5-5.0) mEq/L Chloride 96 L (98-106) mEq/L Carbon Dioxide 25 (21-32) mmol/L BUN 25 H D (7-18) mg/dL Creatinine 1.2 H (0.6-1.0) mg/dL Est Cr Clr Drug Dosing 30.84 mL/min Estimated GFR (MDRD) 43 L (>=60) mL/min Glucose 134 H (75-99) mg/dL Calcium 9.2 (8.4-10.1) mg/dL Total Bilirubin 0.9 (0.0-1.0) mg/dL AST 24 (15-37) U/L ALT 22 (12-78) U/L Alkaline Phosphatase 113 (46-116) U/L C-Reactive Protein 1.2 H (0.2-0.8) mg/dL Total Protein 7.2 (6.4-8.2) g/dL Albumin 3.6 (3.4-5.0) g/dL Med Orders - Current: Current Medications Hydrocodone Bitart/Acetaminophen ([place] 325-5 Mg) 2 tab PO Q6H PRN PRN Reason: Pain (moderate 4-6) Last Admin: 08/03/17 10:45 Dose: 2 tab Atenolol (Tenormin) 25 mg PO BEDTIME [facility] Last Admin: 08/03/17 20:48 Dose: 25 mg Celecoxib (Celebrex) 200 mg PO DAILY [facility] Last Admin: 08/04/17 07:43 Dose: 200 mg Cholecalciferol (Vitamin D3) 1,000 units PO DAILY [facility] Last Admin: 08/04/17 07:44 Dose: 1,000 units Cyanocobalamin (Vitamin B12) 1,000 mcg PO Sa@0800 [facility] Cyclobenzaprine HCl (Flexeril) 10 mg PO Q8H PRN PRN Reason: Muscle Spasm Last Admin: 08/02/17 20:05 Dose: 10 mg Fentanyl (Sublimaze) 25 mcg IVPUSH BID [facility] Last Admin: 08/04/17 07:41 Dose: 25 mcg Hydrochlorothiazide (Hydrochlorothiazide) 25 mg PO BID [facility] Last Admin: 08/04/17 07:43 Dose: 25 mg Lisinopril (Prinivil) 20 mg PO BID [facility] Last Admin: 08/04/17 07:44 Dose: 20 mg Magnesium Chloride (Mag-64) 64 mg PO DAILY [facility] Last Admin: 08/04/17 07:44 Dose: 64 mg Ondansetron HCl (Zofran Odt) 4 mg PO Q4H PRN PRN Reason: nausea, able to take PO Ondansetron HCl (Zofran) 4 mg IV Q4H PRN PRN Reason: Nausea/Vomiting Pantoprazole Sodium (Protonix) 40 mg PO DAILY [facility] Last Admin: 08/04/17 07:44 Dose: 40 mg Polyethylene Glycol (Miralax) 17 gm PO DAILY [facility] Last Admin: 08/04/17 07:44 Dose: 17 gm Potassium Chloride (Klor-Con 10) 20 meq PO DAILY [facility] Last Admin: 08/04/17 07:44 Dose: 20 meq Pregabalin (Lyrica) 50 mg PO DAILY [facility] Last Admin: 08/04/17 07:43 Dose: 50 mg Simvastatin (Zocor) 10 mg PO BEDTIME [facility] Last Admin: 08/03/17 20:48 Dose: 10 mg Sodium Chloride (Saline Flush) 10 ml FLUSH ASDIRECTED PRN PRN Reason: Keep Vein Open Discontinued Medications Aspirin (Halfprin) 81 mg PO BEDTIME [facility] Last Admin: 08/03/17 20:48 Dose: 81 mg Bisacodyl (Dulcolax) 10 mg RECTAL ONETIME ONE Stop: 08/02/17 16:29 Last Admin: 08/02/17 18:31 Dose: 10 mg Enoxaparin Sodium (Lovenox) 30 mg SUBCUT DAILY@1600 [facility] Last Admin: 08/03/17 16:20 Dose: 30 mg Fentanyl (Sublimaze) 25 mcg IVPUSH Q12H [facility] Last Admin: 08/03/17 04:32 Dose: 25 mcg Magnesium Chloride (Mag-64) 1 mg PO DAILY [facility] Last Admin: 08/03/17 14:48 Dose: Not Given - Exam General: Alert, Oriented HEENT: Mucous Membr. Moist/[place] Neck: Supple Lungs: Clear to Auscultation, Normal Respiratory Effort Cardiovascular: Regular Rate, Regular Rhythm GI/Abdominal Exam: Normal Bowel Sounds, Soft, Non-Tender Back Exam: Decreased Range of Motion, Paraspinal Tenderness, Vertebral Tenderness Extremities: Normal Inspection, No Pedal Edema Skin: Warm, Dry Neurological: No New Focal Deficit - Problem List & Annotations (1) Compression fracture of first lumbar vertebra SNOMED Code(s): 231481007 Code(s): S32.010A - WEDGE COMPRESSION FRACTURE OF FIRST LUMBAR VERTEBRA, INIT Status: Acute Priority: High Current Visit: Yes Qualifiers: Encounter type: initial encounter Fracture type: closed Qualified Code(s) : S32.010A - Wedge compression fracture of first lumbar vertebra, initial encounter for closed fracture - Problem List Review Problem List Initiated/Reviewed/Updated: Yes - My Orders Last 24 Hours: My Active Orders 08/03/17 20:00 fentaNYL [Sublimaze] 25 mcg IVPUSH BID 08/04/17 08:00 Magnesium Chloride [Mag-64] 64 mg PO DAILY 08/07/17 08:00 Cyanocobalamin (Vitamin B12) [Vitamin B12] 1,000 mcg PO Sa@0800 - Assessment Assessment:: L1 Compression Fracture - Plan Plan:: Patient not doing well at home managing her pain and has inability to care for self. Admitted for pain control, obtain MRI, Physical therapy. Dr. Long aware of admission and agrees with plan. 08-03-2017 Patient continues to complain of pain. She is requiring assistance to get in and out of bed due to pain. Does feel that the pain meds are helping her. Have started her on Celebrex as well. Physical therapy for evaluation today. Will obtain a MRI of her lumbar spine today. Consider possible vertebroplasty. Continue pain medications and NSAIDs. PT. Inappropriate for discharge. 08-04-2017 Patient does continue to have pain, states ability to change positions is slightly easier today than it was on admission. Still requires staff assistance and is most comfortable if lying in bed. She does have a good appetite. Has not other concerns other than back pain. Had good BM yesterday. Did contact Dr. [facility]ostegui at [facility] after MRI did confirm L1 compression fracture with edema. She does state she is technically qualified for vertebroplasy. Did visit with office services clerk and all documents faxed for approval. Will hold ASA and Lovenox for potential upcoming procedure that could be accomplished in 5 days. Patient aware. Will continue with IV and oral pain meds as well as PT for transfers/strengthening. Inappropriate for discharge due to pain and weakness.
[2017-08-04] MEDS: Simvastatin 10 MG Tab PO SCH (21:01)
[2017-08-04] MEDS: Cyclobenzaprine 10 MG Tab PO PRN (21:02)
[2017-08-04] MEDS: Atenolol 25 MG Tab PO SCH (21:25)
[2017-08-05] MEDS: Acetaminophen/HYDROcodone 325-5 MG Tab PO PRN (02:28)
[2017-08-05 07:20] VITALS: BP 128/66
[2017-08-05] MEDS: Polyethylene Glycol 3350 Powder 17 GM Packet PO SCH (07:37)
[2017-08-05] MEDS: Cholecalciferol (Vitamin D3) 1,000 Unit Tab PO SCH (07:38)
[2017-08-05] MEDS: Pantoprazole 40 MG Tab.CR PO SCH (07:39)
[2017-08-05] MEDS: Hydrochlorothiazide 25 MG Tab PO SCH (07:39)
[2017-08-05] MEDS: Magnesium Chloride 64 MG Tab.ER PO SCH (07:39)
[2017-08-05] MEDS: Potassium Chloride 10 MEQ Tab.ER PO SCH (07:40)
[2017-08-05] MEDS: Pregabalin 50 MG Cap PO SCH (07:40)
[2017-08-05] MEDS: Lisinopril 20 MG Tab PO SCH (07:40)
[2017-08-05] MEDS: Celecoxib 100 MG Cap PO SCH (07:40)
[2017-08-05] MEDS: fentaNYL 100 MCG/2 ML SDV IVPUSH SCH (07:41)
--- NOTE | 2017-08-05 20:02 | PCM.DCSUM1 ---
Discharge Summary - Hospital Course Free Text/Narrative:: Patient was admitted for acute back pain related to a L1 compression fracture. She has no known injury, was moving heavier flower pots at home and feels could have potentially caused this. She did try to tolerate the pain at home with pain meds and Flexeril but had a difficult time with this. Was admitted for PT and pain control as unable to care for her at home and patient having difficulty with getting in and out of chair, bed, transferring to the bathroom. Diagnosis: Stroke: No - Discharge Data Discharge Date: 08/05/17 Discharge Disposition: DC/Tfer W/I Hosp To Swing 61 Condition: Fair - Discharge Diagnosis/Problem(s) (1) Compression fracture of first lumbar vertebra SNOMED Code(s): 081573458 ICD Code: S32.010A - WEDGE COMPRESSION FRACTURE OF FIRST LUMBAR VERTEBRA, INIT Status: Acute Priority: High Qualifiers: Encounter type: initial encounter Fracture type: closed Qualified Code(s) : S32.010A - Wedge compression fracture of first lumbar vertebra, initial encounter for closed fracture - Patient Summary/Data Complications: none Consults: Consultations 08/02/17 15:31 PT Evaluation and Treatment [CONS] Routine Hospital Course: Patient has had some improvement of her ability to transfer/ambulate since admission. Has been on scheduled IV pain meds and gets oral hydrocodone at times. Working with PT. Staff providing assistance with position changes. She did have a MRI on Wednesday that did confirm the L1 compression fracture with surrounding edema. Contacted Dr. Uriostegui at [facility] in regards to possible vertebroplasty. Does qualify for this. Aspirin has been held. Arrangements made for this procedure on Wednesday in [place]. Family will provide transportation. - Patient Instructions Diet: Usual Diet as Tolerated Activity: As Tolerated - Discharge Plan Home Medications: Home Meds Omeprazole 20 mg PO DAILY 09/28/13 [History] Simvastatin 10 mg PO BEDTIME 09/28/13 [History] Atenolol [Tenormin] 25 mg PO BEDTIME 02/23/14 [History] Lisinopril/Hydrochlorothiazide [Lisinopril-Hctz 20-25 mg Tab] 1 each PO BID 10/30 [History] Aspirin [Halfprin] 81 mg PO BEDTIME 11/21/14 [History] Cyanocobalamin (Vitamin B-12) [Vitamin B-12] 1,000 mcg PO SA 11/21/14 [History] Doxylamine Succinate [Unisom Sleep Aid] 25 mg PO BEDTIME PRN 11/21/14 [History] Magnesium [Mag-Tab SR] 1 tab PO DAILY 11/21/14 [History] Cholecalciferol (Vitamin D3) [Vitamin D3] 1,000 unit PO DAILY 10/08/15 [History] Cranberry 400 mg PO DAILY 10/08/15 [History] Pregabalin [Lyrica] 50 mg PO DAILY 10/08/15 [History] Potassium Chloride [Klor-Con M20] 20 meq PO DAILY 07/27/17 [History] Hydrocodone/Acetaminophen [Hydrocodon-Acetaminophen 5-325] 1 tab PO Q6H PRN [History] Celecoxib 200 mg PO DAILY 08/02/17 [History] Cyclobenzaprine [Flexeril] 10 mg PO Q8H PRN 08/02/17 [History] Patient Handouts: Vertebral Fracture, [id number] - Discharge Summary/Plan Comment DC Time >30 min.: Yes Discharge Summary/Plan Comment: Transfer to swing bed for ongoing pain control and physical therapy. Time with patient 15 minutes Time for orders 10 minutes Time for documentation 10 minutes - General Info Date of Service: 08/05/17 Admission Dx/Problem (Free Text: Admission Diagnosis/Problem Admission Diagnosis/Problem Compression fracture of L1 lumbar vertebra Functional Status: Reports: Pain Controlled (with pain meds), Tolerating Diet, Ambulating (short distances with standby assist) - Review of Systems General: Reports: Weakness. Denies: Fever HEENT: Reports: No Symptoms Pulmonary: Denies: Shortness of Breath, Cough, Sputum Cardiovascular: Denies: Chest Pain, Lightheadedness Gastrointestinal: Denies: Abdominal Pain, Nausea Genitourinary: Reports: No Symptoms Musculoskeletal: Reports: Back Pain Skin: Reports: No Symptoms Neurological: Reports: No Symptoms - Patient Data Vitals - Most Recent: Last Vital Signs Temp 96.0 F 08/05/17 07:19 Pulse 56 L 08/05/17 07:19 Resp 20 08/05/17 07:19 BP 128/66 08/05/17 07:40 Pulse Ox 94 L 08/05/17 07:19 Weight - Most Recent: 200 lb Med Orders - Current: Current Medications Discontinued Medications Hydrocodone Bitart/Acetaminophen ([place] 325-5 Mg) 2 tab PO Q6H PRN PRN Reason: Pain (moderate 4-6) Last Admin: 08/05/17 02:28 Dose: 2 tab Aspirin (Halfprin) 81 mg PO BEDTIME [facility] Last Admin: 08/03/17 20:48 Dose: 81 mg Atenolol (Tenormin) 25 mg PO BEDTIME [facility] Last Admin: 08/04/17 21:25 Dose: Not Given Bisacodyl (Dulcolax) 10 mg RECTAL ONETIME ONE Stop: 08/02/17 16:29 Last Admin: 08/02/17 18:31 Dose: 10 mg Celecoxib (Celebrex) 200 mg PO DAILY [facility] Last Admin: 08/05/17 07:40 Dose: 200 mg Cholecalciferol (Vitamin D3) 1,000 units PO DAILY [facility] Last Admin: 08/05/17 07:38 Dose: 1,000 units Cyanocobalamin (Vitamin B12) 1,000 mcg PO Sa@0800 [facility] Cyclobenzaprine HCl (Flexeril) 10 mg PO Q8H PRN PRN Reason: Muscle Spasm Last Admin: 08/04/17 21:02 Dose: 10 mg Enoxaparin Sodium (Lovenox) 30 mg SUBCUT DAILY@1600 [facility] Last Admin: 08/03/17 16:20 Dose: 30 mg Fentanyl (Sublimaze) 25 mcg IVPUSH Q12H [facility] Last Admin: 08/03/17 04:32 Dose: 25 mcg Fentanyl (Sublimaze) 25 mcg IVPUSH BID [facility] Last Admin: 08/05/17 07:41 Dose: 25 mcg Hydrochlorothiazide (Hydrochlorothiazide) 25 mg PO BID [facility] Last Admin: 08/05/17 07:39 Dose: 25 mg Lisinopril (Prinivil) 20 mg PO BID [facility] Last Admin: 08/05/17 07:40 Dose: 20 mg Magnesium Chloride (Mag-64) 1 mg PO DAILY [facility] Last Admin: 08/03/17 14:48 Dose: Not Given Magnesium Chloride (Mag-64) 64 mg PO DAILY [facility] Last Admin: 08/05/17 07:39 Dose: 64 mg Ondansetron HCl (Zofran Odt) 4 mg PO Q4H PRN PRN Reason: nausea, able to take PO Ondansetron HCl (Zofran) 4 mg IV Q4H PRN PRN Reason: Nausea/Vomiting Pantoprazole Sodium (Protonix) 40 mg PO DAILY [facility] Last Admin: 08/05/17 07:39 Dose: 40 mg Polyethylene Glycol (Miralax) 17 gm PO DAILY [facility] Last Admin: 08/05/17 07:37 Dose: 17 gm Potassium Chloride (Klor-Con 10) 20 meq PO DAILY [facility] Last Admin: 08/05/17 07:40 Dose: 20 meq Pregabalin (Lyrica) 50 mg PO DAILY [facility] Last Admin: 08/05/17 07:40 Dose: 50 mg Simvastatin (Zocor) 10 mg PO BEDTIME [facility] Last Admin: 08/04/17 21:01 Dose: 10 mg Sodium Chloride (Saline Flush) 10 ml FLUSH ASDIRECTED PRN PRN Reason: Keep Vein Open - Exam General: Reports: Alert, Oriented HEENT: Reports: Mucous Membr. Moist/[place] Neck: Reports: Supple Lungs: Reports: Clear to Auscultation, Normal Respiratory Effort Cardiovascular: Reports: Regular Rate, Regular Rhythm GI/Abdominal Exam: Normal Bowel Sounds, Soft, Non-Tender Back Exam: Reports: Normal Inspection, Decreased Range of Motion, Paraspinal Tenderness, Vertebral Tenderness Extremities: Normal Inspection, No Pedal Edema Skin: Reports: Warm, Dry Neurological: Reports: No New Focal Deficit
[2017-08-07] MEDS ORDERED: Cyanocobalamin (Vitamin B12) 1,000 MCG Tab PO SCH (08:00)
== END 2017-08-05 10:17 | disposition swing bed (61) | DRG 544 ==
LOC: UNDOADMIN 14:44 → CC.MS 14:44
PROVIDERS: ADMIT Physician Assistant Medical; ATTEND Family Medicine
DX: M48.56XA Collapsed vertebra, not elsewhere classified, lumbar region, initial encounter for fracture (principal); I10 Essential (primary) hypertension; E78.00 Pure hypercholesterolemia, unspecified; K21.9 Gastro-esophageal reflux disease without esophagitis; M19.90 Unspecified osteoarthritis, unspecified site; E53.8 Deficiency of other specified B group vitamins; Z88.0 Allergy status to penicillin; Z88.2 Allergy status to sulfonamides; Z79.899 Other long term (current) drug therapy; Z79.82 Long term (current) use of aspirin; Z96.659 Presence of unspecified artificial knee joint
CPT/HCPCS: 36415; 72148; 80053; 85025; 86140; 97161-GP; 97530-GP; A9270-GY; J1650; J3010

== ENCOUNTER 2017-08-05 08:37 | Inpatient (IN) | payer MEDICARE, BC ==
[2017-08-05] MEDS ORDERED: Sodium Chloride 0.9% 10 ML Syringe FLUSH PRN ×2 (10:56)
[2017-08-05] MEDS ORDERED: Cyclobenzaprine 10 MG Tab PO PRN (10:56)
[2017-08-05] MEDS ORDERED: Ondansetron 4 MG Tab.DIS PO PRN (10:56)
[2017-08-05] MEDS ORDERED: Ondansetron 4 MG/2 ML SDV IV PRN (10:56)
[2017-08-05] MEDS ORDERED: Enoxaparin 30 MG/0.3 ML Syringe SUBCUT SCH (14:30)
[2017-08-05] MEDS: Atenolol 25 MG Tab PO SCH (19:57)
[2017-08-05] MEDS: Simvastatin 10 MG Tab PO SCH (19:57)
[2017-08-05] MEDS: Lisinopril 20 MG Tab PO SCH (19:57)
[2017-08-05] MEDS: fentaNYL 100 MCG/2 ML SDV IVPUSH SCH (19:58)
[2017-08-05] MEDS: Hydrochlorothiazide 25 MG Tab PO SCH (19:58)
[2017-08-06] MEDS: Hydrochlorothiazide 25 MG Tab PO SCH ×2 (07:39→19:40)
[2017-08-06] MEDS: Cholecalciferol (Vitamin D3) 1,000 Unit Tab PO SCH (07:39)
[2017-08-06] MEDS: Celecoxib 100 MG Cap PO SCH (07:40)
[2017-08-06] MEDS: fentaNYL 100 MCG/2 ML SDV IVPUSH SCH ×2 (07:40→19:26)
[2017-08-06] MEDS: Lisinopril 20 MG Tab PO SCH ×2 (07:40→19:40)
[2017-08-06] MEDS: Pregabalin 50 MG Cap PO SCH (07:40)
[2017-08-06] MEDS: Pantoprazole 40 MG Tab.CR PO SCH (07:40)
[2017-08-06] MEDS: Polyethylene Glycol 3350 Powder 17 GM Packet PO SCH (07:40)
[2017-08-06] MEDS: Magnesium Chloride 64 MG Tab.ER PO SCH (07:40)
[2017-08-06] MEDS: Potassium Chloride 10 MEQ Tab.ER PO SCH (07:40)
[2017-08-06] MEDS: Enoxaparin 30 MG/0.3 ML Syringe SUBCUT SCH ×2 (19:31→20:21)
[2017-08-06] MEDS: Simvastatin 10 MG Tab PO SCH (19:32)
[2017-08-06] MEDS: Atenolol 25 MG Tab PO SCH (19:41)
[2017-08-07] MEDS: Acetaminophen/HYDROcodone 325-5 MG Tab PO PRN ×2 (05:15→15:07)
[2017-08-07] MEDS: fentaNYL 100 MCG/2 ML SDV IVPUSH SCH ×2 (07:49→19:20)
[2017-08-07] MEDS: Hydrochlorothiazide 25 MG Tab PO SCH ×2 (07:50→19:18)
[2017-08-07] MEDS: Celecoxib 100 MG Cap PO SCH (07:50)
[2017-08-07] MEDS: Magnesium Chloride 64 MG Tab.ER PO SCH (07:50)
[2017-08-07] MEDS: Potassium Chloride 10 MEQ Tab.ER PO SCH (07:50)
[2017-08-07] MEDS: Pregabalin 50 MG Cap PO SCH (07:50)
[2017-08-07] MEDS: Cholecalciferol (Vitamin D3) 1,000 Unit Tab PO SCH (07:51)
[2017-08-07] MEDS: Lisinopril 20 MG Tab PO SCH ×2 (07:51→19:19)
[2017-08-07] MEDS: Pantoprazole 40 MG Tab.CR PO SCH (07:51)
[2017-08-07] MEDS: Polyethylene Glycol 3350 Powder 17 GM Packet PO SCH (07:51)
[2017-08-07] MEDS ORDERED: Cyanocobalamin (Vitamin B12) 1,000 MCG Tab PO SCH (08:00)
[2017-08-07] MEDS: Enoxaparin 30 MG/0.3 ML Syringe SUBCUT SCH (19:18)
[2017-08-07] MEDS: Simvastatin 10 MG Tab PO SCH (19:19)
[2017-08-07] MEDS: Atenolol 25 MG Tab PO SCH (19:19)
[2017-08-08] MEDS: Acetaminophen/HYDROcodone 325-5 MG Tab PO PRN ×2 (06:42→16:33)
[2017-08-08] MEDS: Lisinopril 20 MG Tab PO SCH ×2 (08:05→19:26)
[2017-08-08] MEDS: Pregabalin 50 MG Cap PO SCH (08:05)
[2017-08-08] MEDS: Pantoprazole 40 MG Tab.CR PO SCH (08:05)
[2017-08-08] MEDS: Cholecalciferol (Vitamin D3) 1,000 Unit Tab PO SCH (08:05)
[2017-08-08] MEDS: Hydrochlorothiazide 25 MG Tab PO SCH ×2 (08:05→19:19)
[2017-08-08] MEDS: Potassium Chloride 10 MEQ Tab.ER PO SCH (08:05)
[2017-08-08] MEDS: Celecoxib 100 MG Cap PO SCH (08:05)
[2017-08-08] MEDS: fentaNYL 100 MCG/2 ML SDV IVPUSH SCH ×2 (08:06→19:14)
[2017-08-08] MEDS: Magnesium Chloride 64 MG Tab.ER PO SCH (08:06)
[2017-08-08] MEDS: Polyethylene Glycol 3350 Powder 17 GM Packet PO SCH (08:06)
[2017-08-08] MEDS: Enoxaparin 30 MG/0.3 ML Syringe SUBCUT SCH (19:18)
[2017-08-08] MEDS: Simvastatin 10 MG Tab PO SCH (19:19)
[2017-08-08] MEDS: Atenolol 25 MG Tab PO SCH (19:27)
[2017-08-09] MEDS: Acetaminophen/HYDROcodone 325-5 MG Tab PO PRN ×2 (05:26→15:06)
[2017-08-09] MEDS: Pregabalin 50 MG Cap PO SCH (07:58)
[2017-08-09] MEDS: Potassium Chloride 10 MEQ Tab.ER PO SCH (07:58)
[2017-08-09] MEDS: fentaNYL 100 MCG/2 ML SDV IVPUSH SCH ×2 (07:58→19:45)
[2017-08-09] MEDS: Pantoprazole 40 MG Tab.CR PO SCH (07:58)
[2017-08-09] MEDS: Polyethylene Glycol 3350 Powder 17 GM Packet PO SCH (07:58)
[2017-08-09] MEDS: Cholecalciferol (Vitamin D3) 1,000 Unit Tab PO SCH (07:58)
[2017-08-09] MEDS: Hydrochlorothiazide 25 MG Tab PO SCH ×2 (07:58→19:47)
[2017-08-09] MEDS: Lisinopril 20 MG Tab PO SCH ×2 (07:58→19:45)
[2017-08-09] MEDS: Magnesium Chloride 64 MG Tab.ER PO SCH (07:59)
[2017-08-09] MEDS: Celecoxib 100 MG Cap PO SCH (07:59)
[2017-08-09] MEDS: Enoxaparin 30 MG/0.3 ML Syringe SUBCUT SCH (19:45)
[2017-08-09] MEDS: Simvastatin 10 MG Tab PO SCH (19:47)
[2017-08-09] MEDS: Atenolol 25 MG Tab PO SCH (19:48)
[2017-08-10 07:11] VITALS: BP 154/70
[2017-08-10] MEDS: Hydrochlorothiazide 25 MG Tab PO SCH (08:00)
[2017-08-10] MEDS: Magnesium Chloride 64 MG Tab.ER PO SCH (08:00)
[2017-08-10] MEDS: Cholecalciferol (Vitamin D3) 1,000 Unit Tab PO SCH (08:00)
[2017-08-10] MEDS: Lisinopril 20 MG Tab PO SCH (08:00)
[2017-08-10] MEDS: Potassium Chloride 10 MEQ Tab.ER PO SCH (08:01)
[2017-08-10] MEDS: Pregabalin 50 MG Cap PO SCH (08:01)
[2017-08-10] MEDS: Pantoprazole 40 MG Tab.CR PO SCH (08:01)
[2017-08-10] MEDS: Polyethylene Glycol 3350 Powder 17 GM Packet PO SCH (08:01)
[2017-08-10] MEDS: Celecoxib 100 MG Cap PO SCH (08:01)
[2017-08-10] MEDS: fentaNYL 100 MCG/2 ML SDV IVPUSH SCH (08:01)
--- NOTE | 2017-08-10 21:51 | PCM.DCSUM1 ---
Discharge Summary - Hospital Course Free Text/Narrative:: Patient presented for direct admit to acute care due to back pain related to a compression fracture of L1. Patient did not have a known injury. Had been moving flower pots prior to noting back pain but no falls or trauma. She was initially seen by Sandra, had xrays and placed on hydrocodone and flexeril. Was then seen in the ER due to lack of pain control. At that time, pain meds were increased as she wanted to be at home with her . Returned Wednesday as she could not tolerate the pain and had very little activity tolerance. Patient unable to transfer to bed/chair and bathroom without pain. Had MRI done which did confirm the compression fracture and showed edema. Contacted Dr. Uriostegui, interventional radiology at [facility] for consideration of vertebroplasty. `Receiving IV fentanyl and [place] for pain control. Transferred to swing bed status for ongoing physical therapy and pain control. Still having difficulty with getting in and out of bed and out of the chair. Diagnosis: Stroke: No - Discharge Data Discharge Date: 08/10/17 Discharge Disposition: Home, Self-Care 01 Condition: Fair - Patient Summary/Data Complications: none Consults: Consultations 08/05/17 10:56 PT Evaluation and Treatment [CONS] Routine Hospital Course: Patient has had mild improvement of overall pain since admission. She does continue to have pain with transfers. Has been off her Aspirin since last week for planned vertebroplasty with Dr. Uriostegui at [facility]. Getting Fentanyl BID and hydrocodone for pain management. Miralax has been controlling initial constipation issues. Patient will be discharged to home with daughter and . Continue hydrocodone for pain control. Plan for vertebroplasty tomorrow in [place]. Family to transport. - Patient Instructions Diet: Usual Diet as Tolerated Activity: As Tolerated - Discharge Plan Home Medications: Home Meds Omeprazole 20 mg PO DAILY 09/28/13 [History] Simvastatin 10 mg PO BEDTIME 09/28/13 [History] Atenolol [Tenormin] 25 mg PO BEDTIME 02/23/14 [History] Lisinopril/Hydrochlorothiazide [Lisinopril-Hctz 20-25 mg Tab] 1 each PO BID 10/30 [History] Cyanocobalamin (Vitamin B-12) [Vitamin B-12] 1,000 mcg PO SA 11/21/14 [History] Doxylamine Succinate [Unisom Sleep Aid] 25 mg PO BEDTIME PRN 11/21/14 [History] Magnesium [Mag-Tab SR] 1 tab PO DAILY 11/21/14 [History] Cholecalciferol (Vitamin D3) [Vitamin D3] 1,000 unit PO DAILY 10/08/15 [History] Cranberry 400 mg PO DAILY 10/08/15 [History] Pregabalin [Lyrica] 50 mg PO DAILY 10/08/15 [History] Potassium Chloride [Klor-Con M20] 20 meq PO DAILY 07/27/17 [History] Hydrocodone/Acetaminophen [Hydrocodon-Acetaminophen 5-325] 1 tab PO Q6H PRN [History] Cyclobenzaprine [Flexeril] 10 mg PO Q8H PRN 08/02/17 [History] Patient Handouts: Spinal Compression Fracture - Discharge Summary/Plan Comment DC Time >30 min.: No Discharge Summary/Plan Comment: Discharge home with family Vertebroplasty planned for Wednesday at [facility]. Hydrocodone for pain control. Flexeril as needed for muscle spasms. - General Info Date of Service: 08/10/17 Admission Dx/Problem (Free Text: L1 Compression fracture Functional Status: Reports: Pain Controlled, Tolerating Diet, Ambulating - Review of Systems General: Denies: Fever HEENT: Reports: No Symptoms Pulmonary: Denies: Shortness of Breath, Cough Cardiovascular: Denies: Chest Pain, Edema, Lightheadedness Gastrointestinal: Denies: Abdominal Pain, Nausea, Vomiting Genitourinary: Reports: No Symptoms Musculoskeletal: Reports: Back Pain Skin: Reports: No Symptoms Neurological: Reports: Weakness - Patient Data Vitals - Most Recent: Last Vital Signs Temp 96.3 F 08/10/17 07:11 Pulse 56 L 08/10/17 07:11 Resp 18 08/10/17 07:11 BP 154/70 H 08/10/17 07:11 Pulse Ox 97 08/10/17 07:11 Weight - Most Recent: 194 lb 12.8 oz Med Orders - Current: Current Medications Discontinued Medications Hydrocodone Bitart/Acetaminophen ([place] 325-5 Mg) 2 tab PO Q6H PRN PRN Reason: Pain (moderate 4-6) Last Admin: 08/09/17 15:06 Dose: 2 tab Atenolol (Tenormin) 25 mg PO BEDTIME [facility] Last Admin: 08/09/17 19:48 Dose: Not Given Celecoxib (Celebrex) 200 mg PO DAILY [facility] Last Admin: 08/10/17 08:01 Dose: 200 mg Cholecalciferol (Vitamin D3) 1,000 units PO DAILY [facility] Last Admin: 08/10/17 08:00 Dose: 1,000 units Cyanocobalamin (Vitamin B12) 1,000 mcg PO Sa@0800 [facility] Last Admin: 08/07/17 07:51 Dose: 1,000 mcg Cyclobenzaprine HCl (Flexeril) 10 mg PO Q8H PRN PRN Reason: Muscle Spasm Enoxaparin Sodium (Lovenox) 30 mg SUBCUT DAILY@1200 [facility] Enoxaparin Sodium (Lovenox) 30 mg SUBCUT DAILY@2000 [facility] Last Admin: 08/09/17 19:45 Dose: 30 mg Fentanyl (Sublimaze) 25 mcg IVPUSH BID [facility] Last Admin: 08/10/17 08:01 Dose: 25 mcg Hydrochlorothiazide (Hydrochlorothiazide) 25 mg PO BID [facility] Last Admin: 08/10/17 08:00 Dose: 25 mg Lisinopril (Prinivil) 20 mg PO BID [facility] Last Admin: 08/10/17 08:00 Dose: 20 mg Magnesium Chloride (Mag-64) 64 mg PO DAILY [facility] Last Admin: 08/10/17 08:00 Dose: 64 mg Ondansetron HCl (Zofran Odt) 4 mg PO Q4H PRN PRN Reason: nausea, able to take PO Ondansetron HCl (Zofran) 4 mg IV Q4H PRN PRN Reason: Nausea/Vomiting Pantoprazole Sodium (Protonix) 40 mg PO DAILY [facility] Last Admin: 08/10/17 08:01 Dose: 40 mg Polyethylene Glycol (Miralax) 17 gm PO DAILY [facility] Last Admin: 08/10/17 08:01 Dose: 17 gm Potassium Chloride (Klor-Con 10) 20 meq PO DAILY [facility] Last Admin: 08/10/17 08:01 Dose: 20 meq Pregabalin (Lyrica) 50 mg PO DAILY [facility] Last Admin: 08/10/17 08:01 Dose: 50 mg Simvastatin (Zocor) 10 mg PO BEDTIME [facility] Last Admin: 08/09/17 19:47 Dose: 10 mg Sodium Chloride (Saline Flush) 10 ml FLUSH ASDIRECTED PRN PRN Reason: Keep Vein Open Sodium Chloride (Saline Flush) 10 ml FLUSH ASDIRECTED PRN PRN Reason: Keep Vein Open - Exam General: Reports: Alert, Oriented HEENT: Reports: Mucous Membr. Moist/[place] Neck: Reports: Supple Lungs: Reports: Clear to Auscultation, Normal Respiratory Effort Cardiovascular: Reports: Regular Rate, Regular Rhythm GI/Abdominal Exam: Normal Bowel Sounds, Soft, Non-Tender Back Exam: Reports: Decreased Range of Motion, Vertebral Tenderness Extremities: Normal Inspection, No Pedal Edema Skin: Reports: Warm, Dry Neurological: Reports: No New Focal Deficit
== END 2017-08-10 13:35 | disposition home or self-care (01) | DRG 559 ==
LOC: CC.MS 08:37 → UNDOADMIN 10:17
PROVIDERS: ADMIT Family Medicine; ATTEND Family Medicine
DX: M48.56XD Collapsed vertebra, not elsewhere classified, lumbar region, subsequent encounter for fracture with routine healing (principal); G95.19 Other vascular myelopathies; K59.00 Constipation, unspecified; Z79.899 Other long term (current) drug therapy
CPT/HCPCS: 97110-GP; 97530-GP; A9270-GY; J1650; J3010

== ENCOUNTER 2017-09-06 18:55 | Emergency (ER) | payer MEDICARE, BC ==
[2017-09-06 19:30] LABS: CHLORIDE,CL 97 mEq/L (98-106); SODIUM,NA 130 mEq/L (136-145)
[2017-09-06] MEDS ORDERED: LORazepam 0.5 MG Tab PO ONE (19:58)
--- NOTE | 2017-09-06 20:09 | EDM.PDOC ---
ED HPI GENERAL MEDICAL PROBLEM - General Chief Complaint: Back Pain or Injury Stated Complaint: back pain with anxiety Time Seen by Provider: 09/06/17 19:25 Source of Information: Reports: Patient, Family (daughter Loretta and ) - History of Present Illness INITIAL COMMENTS - FREE TEXT/NARRATIVE: Pt has been having chronic back pain for many years and has seen chiropractor for many years. She did have kyphoplasty August 10 in [place] and has follow up appt with surgeon September 09. She has continued to complain of pain to the SI area and then also generalized abdominal discomfort. She did have last BM yesterday AM. Did take Miralax daily as she is afraid of being constipated from her pain meds. Daughter states that she lays at home and moans all the time. She states that the pain meds do work when she takes them. Last night the daughter took her to the ER in [place] as she was complaining of constant pain and would not stop moaning. They did labs and are treating a UTI until the culture is back. She got relief from her [place] which is her normal pain med that she takes at home. Daughter states that today she told her that she has to get out of the house it is closing in on her and then she went outside and was better. When they got in the car to come here she did not want to get in as it was too closed in. Daughter is concerned that this may be more nerves and anxiety. Pain moves around according to the pt but is currently more in her buttocks bilaterally. She denies any radiation of the pain down her legs. She lays on the stretcher and verbally moans but when distracted she stops moaning and answers questions. She states that it just comes out when asked why she is moaning. Onset: Gradual Location: Reports: Abdomen, Back Abdomen Pain Score (Numeric/FACES): 7 Headache Pain Score (Numeric/FACES): 7 - Related Data Allergies Allergy/AdvReac Type Severity Reaction Status Date / Time levofloxacin [From Levaquin] Allergy Shaking Verified 08/05/17 12:49 Penicillins Allergy Rash Verified 08/05/17 12:49 sulfamethoxazole Allergy Shaking Verified 08/05/17 12:49 [From Bactrim] trimethoprim [From Bactrim] Allergy Shaking Verified 06/21/18 12:49 Home Meds: Home Meds Omeprazole 20 mg PO DAILY 09/28/13 [History] Simvastatin 10 mg PO BEDTIME 09/28/13 [History] Atenolol [Tenormin] 25 mg PO BEDTIME 02/23/14 [History] Lisinopril/Hydrochlorothiazide [Lisinopril-Hctz 20-25 mg Tab] 1 each PO BID 10/30 [History] Cyanocobalamin (Vitamin B-12) [Vitamin B-12] 1,000 mcg PO SA 11/21/14 [History] Doxylamine Succinate [Unisom Sleep Aid] 25 mg PO BEDTIME PRN 11/21/14 [History] Magnesium [Mag-Tab SR] 1 tab PO DAILY 11/21/14 [History] Cholecalciferol (Vitamin D3) [Vitamin D3] 1,000 unit PO DAILY 10/08/15 [History] Cranberry 400 mg PO DAILY 10/08/15 [History] Pregabalin [Lyrica] 50 mg PO DAILY 10/08/15 [History] Potassium Chloride [Klor-Con M20] 20 meq PO DAILY 07/27/17 [History] Hydrocodone/Acetaminophen [Hydrocodon-Acetaminophen 5-325] 1 tab PO Q6H PRN [History] Cyclobenzaprine [Flexeril] 10 mg PO Q8H PRN 08/02/17 [History] Past Medical History - Past Health History Medical/Surgical History: Denies Medical/Surgical History HEENT History: Reports: Hard of Hearing, Sinusitis Cardiovascular History: Reports: High Cholesterol, Hypertension, SOB on Exertion Respiratory History: Reports: None Gastrointestinal History: Reports: GERD Genitourinary History: Reports: UTI, Recurrent, Other (See Below) Other Genitourinary History: dysuria, nocturia, urticaria Musculoskeletal History: Reports: Arthritis, Back Pain, Chronic, Osteoarthritis , Other (See Below) Other Musculoskeletal History: arthralgia, bilateral leg paresthesias Psychiatric History: Reports: None Endocrine/Metabolic History: Reports: Vitamin D Deficiency Hematologic History: Reports: B12 Deficiency, Other (See Below) Other Hematologic History: hypokalemia Immunologic History: Reports: None Oncologic (Cancer) History: Reports: None Dermatologic History: Reports: None - Past Surgical History HEENT Surgical History: Reports: Tonsillectomy Cardiovascular Surgical History: Reports: None Respiratory Surgical History: Reports: None GI Surgical History: Reports: Appendectomy, Cholecystectomy Female Surgical History: Reports: Hysterectomy, Oophorectomy, Other (See Below) Musculoskeletal Surgical History: Reports: Arthroscopic Knee, Knee Replacement Oncologic Surgical History: Reports: None Social & Family History - Tobacco Use Smoking Status *Q: Unknown Ever Smoked - Living Situation & Occupation Living situation: Reports: , with Spouse Occupation: Retired ED ROS GENERAL - Review of Systems Review Of Systems: See Below Constitutional: Reports: No Symptoms HEENT: Reports: No Symptoms Respiratory: Reports: No Symptoms Cardiovascular: Reports: No Symptoms GI/Abdominal: Reports: Abdominal Pain. Denies: Constipation, Diarrhea, Nausea, Vomiting : Reports: No Symptoms Musculoskeletal: Reports: Back Pain, Other (buttock pain) Skin: Reports: No Symptoms ED EXAM,LOWER BACK PAIN/INJURY - Physical Exam Exam: See Below Exam Limited By: No Limitations General Appearance: Alert, Moderate Distress Ears: Normal External Exam Nose: Normal Inspection Throat/Mouth: Normal Inspection, Normal Oropharynx Head: Atraumatic Neck: Normal Inspection, Supple, Non-Tender Respiratory/Chest: No Respiratory Distress, Lungs Clear Cardiovascular: Regular Rate, Rhythm, No Edema GI/Abdominal: Normal Bowel Sounds, Soft, Tender (mild tenderness generally throughout. Bowel sounds are hyperactive.) Back Exam: Other (tender with palpation to the SI joints bilaterally. No tenderness noted to the surgical sites which are well healed.) Neurological: Alert, Other (laying on the cot moaning constantly unless distracted.) Psychiatric: Anxious Skin Exam: Warm, Dry, Intact Course - Vital Signs Last Recorded V/S: Last Vital Signs Temp 98.7 F 09/06/17 18:55 Pulse 61 09/06/17 18:55 Resp 24 H 09/06/17 18:55 BP 200/90 H 09/06/17 20:16 Pulse Ox 97 09/06/17 18:55 - Orders/Labs/Meds Orders: Active Orders 24 hr Category Date Time Status UA W/MICROSCOPIC [URIN] Stat Lab 09/06/17 19:15 Ordered Labs: Laboratory Tests 09/06/17 09/06/17 09/06/17 Range/Units 19:15 19:20 19:20 WBC 6.1 (5.0-10.0) 10^3/uL RBC 4.99 (4.00-5.50) 10^6/uL Hgb 14.8 (12.0-16.0) g/dL Hct 42.7 (37.0-47.0) % MCV 85.6 (82.0-94.0) fL MCH 29.7 (27.0-32.0) pg MCHC 34.7 (33.0-38.0) g/dL RDW Coeff of [place] 13.1 (11.0-15.0) % Plt Count 248 (150-400) 10^3/uL Neut % (Auto) 69.9 (35-85) % Lymph % (Auto) 21.4 (10-55) % [place] % (Auto) 7.1 (0-16) % Eos % (Auto) 1.3 (0-5) % Baso % (Auto) 0.3 (0-3) % Neut # (Auto) 4.24 (1.80-7.00) 10^3/uL Lymph # (Auto) 1.30 (1.00-4.80) 10^3/uL [place] # (Auto) 0.43 (0.00-0.80) 10^3/uL Eos # (Auto) 0.08 (0.00-0.45) 10^3/uL Baso # (Auto) 0.02 10^3/uL Sodium 130 L (136-145) mEq/L Potassium 3.3 L (3.5-5.0) mEq/L Chloride 97 L (98-106) mEq/L Carbon Dioxide 23 (21-32) mmol/L BUN 12 D (7-18) mg/dL Creatinine 1.1 H (0.6-1.0) mg/dL Est Cr Clr Drug Dosing 35.00 mL/min Estimated GFR (MDRD) 47 L (>=60) mL/min Glucose 118 H (75-99) mg/dL Calcium 9.3 (8.4-10.1) mg/dL C-Reactive Protein < 0.2 L (0.2-0.8) mg/dL Urine Color Yellow (YELLOW) Urine Appearance Clear (CLEAR) Urine pH 7.5 (4.5-8.0) Ur Specific [place] 1.015 (1.003-1.020) Urine Protein Negative (NEGATIVE) mg/dL Urine Glucose (UA) Negative (NEGATIVE) mg/dL Urine Ketones Negative (NEGATIVE) mg/dL Urine Occult Blood Trace-intact H (NEGATIVE) Urine Nitrite Negative (NEGATIVE) Urine Bilirubin Negative (NEGATIVE) Urine Urobilinogen 0.2 (0.2-1.0) EU/dL Ur Leukocyte Esterase Moderate H (NEGATIVE) Urine RBC 0-5 (0-5) /HPF Urine WBC 20-30 H (0-5) /HPF Ur Squamous Epith Cells Few H (NOT SEEN) /HPF Urine Bacteria Few H (NOT SEEN) /HPF Meds: Medications Discontinued Medications Generic Name Dose Route Start Last Admin Trade Name Freq PRN Reason Stop Dose Admin Lorazepam 0.5 mg 09/06/17 19:58 09/06/17 20:01 Ativan PO 09/06/17 19:59 0.5 mg NOW ONE Administration - Re-Assessments/Exams Free Text/Narrative Re-Assessment/Exam: 09/06/17 20:41 Pt is now sleeping comfortably and is not moaning. Discussed with and daughter Loretta and they are agreeable to discharging her with ativan for the anxiety to see how she does. Departure - Departure Time of Disposition: 20:44 Disposition: Home, Self-Care 01 Condition: Good Clinical Impression: Acute exacerbation of chronic low back pain, Anxiety - Discharge Information *PRESCRIPTION DRUG MONITORING PROGRAM REVIEWED*: Not Applicable *COPY OF PRESCRIPTION DRUG MONITORING REPORT IN PATIENT CIERA: Not Applicable Forms: ED Department Discharge Additional Instructions: try ativan 0.5 mg every 12 hours as needed for anxiety and discomfort keep appt with surgeon on recheck with new concerns as needed. - My Orders Last 24 Hours: My Active Orders 09/06/17 19:15 UA W/MICROSCOPIC [URIN] Stat - Assessment/Plan Last 24 Hours: My Active Orders 09/06/17 19:15 UA W/MICROSCOPIC [URIN] Stat
[2017-09-06 20:16] VITALS: BP 200/90
[2017-09-06] MEDS ORDERED: LORazepam 0.5 MG Tab ONE (20:43)
[2017-09-06] MEDS ORDERED: LORazepam 0.5 MG Tab PO PRN (20:45)
== END 2017-09-06 21:05 | disposition home or self-care (01) ==
LOC: CC.ED 18:55
DX: M54.5 Low back pain (principal); G89.29 Other chronic pain; E78.00 Pure hypercholesterolemia, unspecified; I10 Essential (primary) hypertension; F41.9 Anxiety disorder, unspecified; K21.9 Gastro-esophageal reflux disease without esophagitis; Z87.440 Personal history of urinary (tract) infections; Z88.0 Allergy status to penicillin; Z88.1 Allergy status to other antibiotic agents; Z79.899 Other long term (current) drug therapy; Z88.2 Allergy status to sulfonamides
CPT/HCPCS: 36415; 80048; 81001; 85025; 86140; 99283; 99284; A9270-GY